=== PATIENT | male | born 1940 | race Caucasian/White ===

== ENCOUNTER → 2022-10-16 07:52 | Outpatient (CLI) | payer MEDICARE, OTHER, SELFPAY ==
[2022-10-16 08:46] VITALS: BP 131/69; PULSE 82; RESP 16; TEMP 36.7; O2SAT 99; BMI 31.8
[2022-10-16 08:55] LABS: Platelet Count 176 X10^3/uL (150-400)
[2022-10-16 10:14] LABS: INR 2.9 (0.9-1.3); Prothrombin Time 33.5 SECONDS (10.1-12.7)
--- NOTE | 2022-10-16 10:36 | SUR.PREOP ---
Pt's INR = 2.9. Case cancelled by Dr Calderón. Pt and instructed to call prescribing MD, Dr Ortiz, to discuss holding the warfarin and possibly bridging with lovenox. I spoke with Dr Calderón who states the INR needs to be less that 1.5. This information was given to the patient and the in verbal and written form, along with a copy of todays labs.
== END ==
PROVIDERS: Specialist; Referring Provider Orthopaedic Surgery; Visit Provider Orthopaedic Surgery
DX: Z53.09 Procedure and treatment not carried out because of other contraindication (principal); M48.062 Spinal stenosis, lumbar region with neurogenic claudication
CPT/HCPCS: 36415; 85049; 85610

== ENCOUNTER 2022-10-30 07:45 | Outpatient (CLI) | payer MEDICARE, OTHER, SELFPAY ==
--- NOTE | 2022-10-30 | DI.RAD.S_ITS ---
PROCEDURE: FL INJECT SPINE FOR CT MYELO INDICATIONS: STENOSIS COMPARISON: [facility], CT, CT LUMBAR MYELOGRAM, 10/30/2022, 10:19. [facility], RG, CT LUMBAR SPINE, 09/27/2022, 12:43. TECHNIQUE: The indications, alternatives, benefits, risks and complications of the procedure were explained to the patient. Written informed consent was obtained and placed in the chart. The patient was placed in a prone position on the fluoroscopy table, and a level was chosen for percutaneous access under fluoroscopic guidance. The skin was prepped and draped in a sterile fashion. After local anaesthetic, a spinal needle was then used to enter the intrathecal space, with return of clear cerebrospinal fluid. 12 mL of Isovue M-200 were administered intrathecally under fluoroscopic visualization. The needle was then withdrawn, and a bandage applied to the puncture site. Fluoroscopic spot films were then acquired in various positions. FINDINGS: Standing frontal, lateral, and oblique views demonstrate no significant central canal stenoses. Access level: L5-S1. Medications: 1% lidocaine for local anaesthesia. Complications: None. Patient positioning was difficult. Patient reported pain with slow injection of myelogram contrast. Patient was transferred to CT for subsequent CT myelogram. IMPRESSION: Successful fluoroscopically guided administration of iodinated contrast into the lumbar spine central canal for CT myelogram. Dictated by: Wm Hodge M.D. on 10/30/2022 at 11:04 Approved by: Wm Hodge M.D. on 10/30/2022 at 11:05
[2022-10-30 08:34] LABS: Platelet Count 195 X10^3/uL (150-400)
[2022-10-30 08:36] VITALS: BP 134/74; PULSE 75; RESP 20; TEMP 36.4; O2SAT 98
[2022-10-30 08:39] LABS: INR 1.5 (0.9-1.3); Prothrombin Time 17.4 SECONDS (10.1-12.7)
[2022-10-30 08:42] LABS: PTT Partial Thromboplastin Tim 36 SECONDS (26-36)
--- NOTE | 2022-10-30 08:43 | SUR.PREOP ---
Patient here with from assisted living facility in [place]. Patient is wheelchair/walker dependent due to chronic back issues and previous history of CVA. Patient GCS 15; presents with gait belt, wheelchair, and indwelling ronquillo catheter. Patient states that last dose of Lovenox was yesterday morning as a bridge to Coumadin. Patient following all commands and neurovascular status at patient's baseline. No facial droop noted, full sensation to upper extremities. Strong, equal training and development director.
[2022-10-30 09:24] VITALS: BP 182/86; PULSE 67; RESP 16; O2SAT 98
--- NOTE | 2022-10-30 10:31 | DI.CT.S_ITS ---
PROCEDURE: CT LUMBAR MYELOGRAM INDICATIONS: Spinal stenosis, lumbar region TECHNIQUE: After the intrathecal administration of 15 mL intrathecal contrast, 3 mm thick sections acquired from T12 to the sacrum. Sagittal and coronal reformats were then constructed. For radiation dose reduction, the following was used: automated exposure control. COMPARISON: [facility], , CT LUMBAR SPINE, 09/27/2022, 12:43. FINDINGS: Image quality: There is artifact associated with the metallic hardware. Artifact from the metallic hardware is reduced by metal reconstruction algorithm. Bones: No spondylolysis or spondylolisthesis. No suspicious bony lesions. No acute fractures. Soft tissues: No retroperitoneal masses. Visualized aorta demonstrates normal caliber. A left iliac stent is partially seen. Postoperative changes are seen, with bilateral pedicle screws at the L1 through L5 levels. The screws appear well placed. Vertical fixation rods are seen. A disc spacer is seen at the L3-L4 level. No findings of hardware failure or hardware loosening are seen. There has been removal of portions of the posterior elements. Bone grafting material is noted. Minimal retrolisthesis is seen at L1-L2 and L2-L3. Mild levoconvex scoliotic curvature is noted. T12-L1: Moderate loss of disc height is seen. Endplate irregularity and sclerosis can be seen. Extensive bridging endplate osteophytes are seen. Mild facet joint hypertrophy is seen. There is minimal right-sided and moderate left-sided neural foraminal narrowing. [id number] central canal narrowing is seen. L1-L2: Moderate to severe loss of disc height and disc signal can be seen. At least moderate disc bulge is seen. Bridging endplate osteophytes are seen anteriorly as well as on the left side. Moderate facet joint hypertrophy is seen. Moderate to severe bilateral neural foraminal narrowing can be seen. Moderate to severe central canal narrowing is seen. L2-L3: Moderate to severe loss of disc height is seen. Bridging endplate osteophytes are seen, primarily anteriorly. Moderate disc bulge is seen, which is eccentric to the left side. Moderate facet joint hypertrophy is seen. At least moderate right-sided and moderate to severe left-sided neural foraminal narrowing can be seen. Mild central canal narrowing is seen. L3-L4: Mild loss of disc height is seen. Moderate generalized disc bulge is seen. Mild to moderate facet hypertrophy is seen. Moderate bilateral neural foraminal narrowing is seen. Moderate central canal narrowing is seen. L4-L5: Moderate to severe loss of disc height is seen on the right side. Moderate facet joint hypertrophy is seen. There is at least moderate right-sided and moderate left-sided neural foraminal narrowing. No significant central canal narrowing is seen. L5-S1: Moderate to severe loss of disc height is seen. Moderate generalized disc bulge is seen. Moderate to prominent facet hypertrophy is seen at this level. There is moderate to severe bilateral neural foraminal narrowing. No significant central canal narrowing is seen. Miscellaneous: Nerve roots appear unremarkable throughout. No nerve root clumping to suggest arachnoiditis. IMPRESSION: Intact appearing postoperative hardware seen L1 through L5. Multiple levels of underlying degenerative change can be seen. Dictated by: Asim Gamble M.D. on 10/30/2022 at 11:54 Approved by: Asim Gamble M.D. on 10/30/2022 at 12:01
[2022-10-30 10:54] VITALS: BP 157/83; PULSE 64; RESP 12; TEMP 36.3; O2SAT 98
--- NOTE | 2022-10-30 11:34 | SUR.PHASEII ---
Pt complaining of leg and back pain. Pt repositioned. Pt states he takes acetaminophen at home for pain. Has not taken today. Called Dr Hodge. See new order.
[2022-10-30] MEDS: ACETAMINOPHEN 325 MG TABLET 975 MG PO (11:43)
[2022-10-30 11:53] VITALS: BP 100/65; PULSE 52; RESP 16; TEMP 36.2; O2SAT 97
== END 2022-10-30 12:55 | disposition home or self-care (01) ==
PROVIDERS: Radiology Diagnostic Radiology; Referring Provider Orthopaedic Surgery; Visit Provider Orthopaedic Surgery
DX: M48.061 Spinal stenosis, lumbar region without neurogenic claudication (principal)
CPT/HCPCS: 62284; 72133; 77003; 85049; 85610; 85730